=== PATIENT | male | born 1985 | race African-American/Black ===

== ENCOUNTER 2017-03-20 09:43 | Emergency (ER) | payer MEDICAID ==
[~2017-03-20] VITALS: Ht 177.8 cm; Wt 113.4 kg
[2017-03-20 09:49] VITALS: BP 127/84
[2017-03-20] MEDS ORDERED: NKM (09:53)
[2017-03-20] MEDS ORDERED: Ketorolac 60mg Inj IM ONE (10:15)
[2017-03-20] MEDS ORDERED: REGLAN10 M1 ORAL (10:15)
[2017-03-20] MEDS ORDERED: IBUPROFEN800 MG ORAL (10:15)
--- NOTE | 2017-03-20 10:33 | Emergency Room Report ---
History of Present Illness General Chief Complaint: General Complaint Source: Patient Present Illness HPI 31YOM with 1 week intermittent headache. Right side of neck, radiating to back of head. Associated with ear pain, cold sensitivity in right side of mouth - thinks it could be wisdom teeth, poor dentition. No associ fever/chills, neck stiffness, nausea/vomiting, sick contacts. Intermittent relief with alleve or tylenol. Patient is sleeping on floor for last 2-3 months because his son is sleeping in bed with partner. Also, daily ETOH and smoking marlboros and marijuana. Doesnt exercise or "eat well." Allergies: Coded Allergies: No Known Allergies (Unverified , 03/20/17) Patient History Past Medical History: none Past Surgical History: none Pertinent Family History: none Social History: Reports: alcohol use, drug use, smoking Immunizations: UTD Reviewed Nursing Documentation: PMH: Agreed, PSxH: Agreed Nursing Documentation-PMH Past Medical History: No Stated History Review of Systems All Other Systems: negative except mentioned in HPI Physical Exam Vital Signs Date Time Temp Pulse Resp B/P Pulse Ox O2 Delivery O2 Flow Rate FiO2 03/20/17 09:49 98.1 70 16 127/84 99 Room Air Sp02 EP Interpretation: reviewed, normal General Appearance: normal inspection, well appearing, no apparent distress, alert, GCS 15, non-toxic, obese, other - Laughing, interacting, no acute distress Head: normocephalic, atraumatic Eyes: bilateral eye EOMI, bilateral eye PERRL ENT: normal ENT inspection, hearing grossly normal, normal pharynx, no angioedema, normal voice, TMs + canals normal, other - Poor dentition Neck: normal inspection, full range of motion, supple, no bony tend Respiratory: normal inspection, lungs clear, normal breath sounds, no respiratory distress, no retraction, no wheezing Cardiovascular #1: regular rate, rhythm, no edema Gastrointestinal: normal inspection, normal bowel sounds, non tender, soft, no guarding, no hernia Genitourinary: no CVA tenderness Musculoskeletal: normal inspection, back normal, normal range of motion, Chente' s Sign negative Neurologic: normal inspection, alert, oriented x3, responsive, 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 Afebrile.l No focal neuro deficits. No meningismus Poor sleeping, eating habits. No exercise. ETOH, smoking. Likely tension headache Gave IM toradol, reglan in ED Rx ibuprofen, reglan Has dentist appt tomorrow Encouraged family to place baby in crib at night Encouraged better eating, sleeping habits, STOP smoking, ETOH Regualr exercise Last Vital Signs Date Time Temp Pulse Resp B/P Pulse Ox O2 Delivery O2 Flow Rate FiO2 03/20/17 09:49 98.1 70 16 127/84 99 Room Air Status: improved Disposition: HOME, SELF-CARE Condition: Improved Scripts Ibuprofen* (MOTRIN*) 800 Mg Tablet 800 MG ORAL THREE TIMES A DAY for headache for 7 Days, #30 TAB 0 Refills Prov: HUGO RICH M.D. 03/20/17 Metoclopramide Hcl* (REGLAN*) 10 Mg Tablet 10 MG ORAL THREE TIMES A DAY for headache for 7 Days, #30 TAB Prov: HUGO RICH M.D. 03/20/17 Patient Instructions: Tension Headache, [id number] Additional Instructions: - Take ibuprofen with reglan AND FOOD up to 3x a day, every 8 hours, as needed for headache - STOP SMOKING AND DRINKING - Get daily fresh air, exercise - SLEEP ON BED - Apply ice to neck/head on area of pain - Go to dentist tomorrow HUGO RICH M.D. March 20, 2017 10:33
[2017-03-20 10:49] VITALS: BP 121/87
== END 2017-03-20 10:51 | disposition home or self-care (01) ==
LOC: EMR 10:02
DX: G44.229 Chronic tension-type headache, not intractable (principal); F17.200 Nicotine dependence, unspecified, uncomplicated; F12.90 Cannabis use, unspecified, uncomplicated
CPT/HCPCS: 96372; 99284

== ENCOUNTER 2018-05-12 23:25 | Emergency (ER) | payer MEDICAID ==
[~2018-05-12] VITALS: Ht 177.8 cm; Wt 127.0 kg
[~2018-05-12 23:25] MED LIST: IBUPROFEN800 MG ORAL; NKM; REGLAN10 M1 ORAL
[2018-05-12 23:52] VITALS: BP 107/75
[2018-05-12] MEDS ORDERED: PREDNISONE20 MG ORAL (23:57)
[2018-05-12] MEDS ORDERED: BENADRYL25 MG ORAL (23:57)
[2018-05-12] MEDS ORDERED: CEPHALEXIN500 MG ORAL (23:57)
[2018-05-13] MEDS ORDERED: Cephalexin 500mg cap ORAL ONE
[2018-05-13 00:21] VITALS: BP 107/75
--- NOTE | 2018-05-13 00:28 | Emergency Room Report ---
History of Present Illness General Chief Complaint: Upper Extremity Injury Source: Patient Present Illness HPI Patient presents with complaints of irritation to the left elbow reports that he Feels like he was bitten by a spider 7 days ago He feels the area has some swelling to it Also complains of some tingling sensation Denies any discharge And eyes any fevers or chills Denies any chest pain or shortness of breath area is also somewhat puritic in nature Allergies: Coded Allergies: No Known Allergies (Unverified , 03/20/17) Patient History Past Medical History: see triage record Pertinent Family History: none Reviewed Nursing Documentation: PMH: Agreed; PSxH: Agreed Nursing Documentation-PMH Past Medical History: No Stated History Review of Systems All Other Systems: negative except mentioned in HPI Physical Exam Vital Signs Date Time Temp Pulse Resp B/P (MAP) Pulse Ox O2 Delivery O2 Flow Rate FiO2 05/12/18 23:30 98.2 90 18 107/75 98 Room Air 98.2 Sp02 EP Interpretation: reviewed, normal General Appearance: well appearing, no apparent distress Head: normocephalic, atraumatic Eyes: bilateral eye PERRL, bilateral eye EOMI ENT: normal pharynx, no angioedema, normal voice Neck: full range of motion Respiratory: lungs clear, normal breath sounds Cardiovascular #1: regular rate, rhythm Musculoskeletal: normal inspection Neurologic: alert, oriented x3 Skin: other - There is an area of insect bite just above the elbow posteriorly on the left arm. There is some mild focal irritation, no obvious fluctuance there is no dermatomal rash, Lymphatic: no adenopathy Medical Decision Making Diagnostic Impression: Primary Impression: insect bite Additional Impression: Cellulitis ER Course Given the duration of symptoms and the area Patient appears to have findings consistent with cellulitis and local irritation Patient is treated symptomatically There are no areas for incision and drainage at this time and patient will have close outpatient follow-up Last Vital Signs Date Time Temp Pulse Resp B/P (MAP) Pulse Ox O2 Delivery O2 Flow Rate FiO2 05/13/18 00:21 98.2 18 107/75 98 Room Air 98.2 05/12/18 23:30 90 Status: improved Disposition: HOME, SELF-CARE Condition: Improved Scripts Prednisone* (PREDNISONE*) 20 Mg Tablet 20 MG ORAL BID, #8 TAB Prov: Vicki Gamino DO 05/12/18 Diphenhydramine Hcl* (BENADRYL*) 25 Mg Capsule 25 MG ORAL Q6H PRN for Itching, #20 CAP Prov: Vicki Gamino DO 05/12/18 Cephalexin* (KEFLEX*) 500 Mg Capsule 500 MG ORAL EVERY 6 HOURS for 7 Days, CAP Prov: Vicki Gamino DO 05/12/18 Referrals: NON PHYSICIAN (PCP) Patient Instructions: Cellulitis, [id number], Insect Bite, [id number] Additional Instructions: Patient is provided with the discharge instructions notified to follow up with primary doctor in the next 2-3 days otherwise return to the er with any worsening symptoms. Please note that this report is being documented using [employer] technology. This can lead to erroneous entry secondary to incorrect interpretation by the dictating instrument. Vicki Gamino DO May 13, 2018 00:28
== END 2018-05-13 00:22 | disposition home or self-care (01) ==
LOC: EMR 23:55
DX: S40.862A Insect bite (nonvenomous) of left upper arm, initial encounter (principal); L03.114 Cellulitis of left upper limb; W57.XXXA Bitten or stung by nonvenomous insect and other nonvenomous arthropods, initial encounter; Y92.9 Unspecified place or not applicable
CPT/HCPCS: 99284; J7512